=== PATIENT | female | born 1975 | race Caucasian/White ===

== ENCOUNTER → 2020-06-12 | Outpatient (CLI) | payer OTHER ==
[~2020-06-12] MED LIST: LIDOCAINE 2%/EPI 1:100,000 20 ML VIAL. INJ ONE
--- NOTE | 2020-06-12 17:40 | RAD ---
ADDENDUM #1 Addendum: Pathology results indicate fibrocystic changes (including scattered microcalcifications and focal scl erosing adenosis) with no atypia or evidence of malignancy . These are benign concordant result. [facility] mmend return to routine screening. Electronically signed by: Asher Cruz MD (06/15/2020 10:49 AM) [id number] ORIGINAL REPORT Examination: 1. Left breast stereotactic biopsy. 2. Left postprocedure mammogram. INDICATION: 44-year-old woman recalled from screening for calcifications in the lateral left breast, subsequently recommended for stereotactic biopsy. COMPARISON: Mammogram of 05/02/2020 TECHNIQUE: Informed consent was obtained and an appropriate procedural pause observed. Using standard sterile technique, mammographic imaging guidance and local anesthesia with lidocaine and lidocaine w ith epinephrine deeper in the breast, multiple vacuum assisted 9 gauge core biopsy samples of the tar geted calcifications in the lateral left breast were obtained. The biopsied samples were radiographed and confirmed to contain the targeted calcifications. A marco-shaped biopsy marker was then placed in the biopsy cavity after the needle was removed and hemostasis was ensured with direct breast compress ion for several minutes. A post procedure mammogram was subsequently obtained. Puncture site was dres sed and postprocedure instructions reviewed. Patient discharged in stable condition to follow up with her referring provider. FINDINGS: The specimen radiograph contained targeted calcifications. The postprocedure mammogram showed satisfa ctory placement of a marco-shaped biopsy marker in the biopsy cavity with a few residual calcifications and no postbiopsy hematoma. IMPRESSION: Successful left breast stereotactic biopsy of calcifications bilaterally. Pathology results are pendi ng. An addendum will be issued once pathology results become available. Electronically signed by: Asher Cruz MD (06/12/2020 5:37 PM) [id number]
--- NOTE | 2020-06-15 09:15 | PATHOLOGY ---
[facility] Accession Number: [id number] . 01 Material submitted: . breast - LEFT BREAST TISSUE. Modifiers: left . 01 Clinical history: . LEFT BREAST CALICIFICATIONS LEFT BREAST STEREOTACTIC . 02 Diagnosis: Breast tissue, left breast stereotactic needle biopsies: - Fibrocystic changes with the following components: - Stromal fibrosis. - Duct ectasia. - Cystic change. - Sclerosing adenosis, focal. - Scattered microcalcifications identified. . . (JPM:max; 06/14/2020) S 06/14/2020 1650 Local . 02 Comment: There is no atypia or evidence of malignancy. (JPM:max; 06/14/2020) . 02 Electronically signed: . Ki Casanova MD, Pathologist NPI- [id number] . 01 Gross description: . The specimen is received in formalin, labeled "Marycarmen Salinas, left breast". Received within a plastic cassette are multiple needle cores of fibrofatty tissue measuring 3.5 x 3.0 x 0.6 cm in aggregate dimensions. The specimen is submitted entirely in cassettes A1 through A4. The cold ischemic time is 5 minutes. The total formalin fixation time is 31 hours and 5 minutes. (CAA; 06/13/2020) QAC/QAC 06/14/2020 1442 Local . 02 Pathologist provided ICD-10: N60.12, N60.22, N60.42 . 02 CPT . 707919 Specimen Comment: A courtesy copy of this report has been sent to [phone] Specimen Comment: Report sent to Specimen Comment: A duplicate report has been generated due to demographic updates. Performed at: 01 [facility] [address], [place], [place] [id number] MD Jeyson English MD Phone: [phone] Performed at: [address] [id number] MD Ki Casanova MD Phone: [phone]
== END | disposition home or self-care (01) ==
LOC: MAMMO 13:40
PROVIDERS: ATTEND Family Medicine
DX: R92.8 Other abnormal and inconclusive findings on diagnostic imaging of breast (principal); Z79.899 Other long term (current) drug therapy
CPT/HCPCS: 19081; 77065; 88305; C1713; J3490; 19085